=== PATIENT | male | born 1995 | race Two or more races ===

== ENCOUNTER 2019-03-28 07:44 | Emergency (ER) | payer SELFPAY ==
[~2019-03-28] VITALS: Ht 182.9 cm; Wt 72.6 kg
[2019-03-28 07:56] VITALS: BP 122/68
--- NOTE | 2019-03-28 07:56 | NUR ---
BIB FRIEND C/O LLQ PAIN STARTED 0630H, PT IS AAOX4, NOT IN RESPIRATORY DISTRESS ,HOOKED TO MONITOR, KEPT RESTED AND COMFORTABLE, WILL CONTINUE TO MONITOR.
--- NOTE | 2019-03-28 08:00 | NUR ---
URINE SPECIMEN COLLECTED AND SENT TO LAB.
--- NOTE | 2019-03-28 08:07 | NUR ---
SEEN AND EXAMINED BY .
--- NOTE | 2019-03-28 08:17 | NUR ---
REFUSED BLOOD WORK, AWARE.
--- NOTE | 2019-03-28 08:17 | NUR ---
Patient discharged to home in stable condition. Written and verbal after care instructions given. Patient verbalizes understanding of instruction.
[2019-03-28] MEDS ORDERED: IV NS 0.9% 1,000 ML BAG IV ONE (08:30)
== END 2019-03-28 08:18 | disposition home or self-care (01) ==
LOC: ER 07:48
DX: R10.32 Left lower quadrant pain (principal); R10.12 Left upper quadrant pain
CPT/HCPCS: 99281; J7030